=== PATIENT | male | born 1985 | race Caucasian/White ===

== ENCOUNTER 2021-07-27 18:08 | Emergency (ER) | payer MEDICAID, SELFPAY ==
[2021-07-27 18:09] VITALS: BP 133/81; PULSE 86; RESP 17; TEMP 36.3; O2SAT 100; BMI 22.0
[2021-07-27 18:54] VITALS: BP 121/78; PULSE 78; RESP 16; O2SAT 98
--- NOTE | 2021-07-27 19:39 | EX.ED.DYSGE1 ---
HPI History of Present Illness Chief Complaint: Abscess Informant: patient Narrative Narrative: Patient presents with concern for abscess on his right hand and right leg. The right hand been there for 2 or 3 days. He had some small drainage from it. It does not hurt to move his wrist or hand. He states he thinks he bumped his right leg and got a scrape. It is now red and an area around it. He has a history of MRSA. He states he used to use drugs and inject but does not do that anymore. He is on no medicines. No allergies. He has gotten Keflex and Bactrim with good improvement in the past. [facility] Medical History MRSA (methicillin resistant Staphylococcus aureus) Home Medications cephalexin 500 mg PO Q6 #40 cap 07/27/21 [Rx Last Taken Unknown] sulfamethoxazole-trimethoprim [Bactrim DS] 1 tab PO BID 10 Days #20 tab 07/27/21 [Rx Last Taken Unknown] Surgical History no surgical history Social History Smoking Status: Current every day smoker tobacco type: cigarettes ROS ROS ED Constitutional Constitutional ED: Denies chills, fever(s) or subjective ENT ENT ED: Denies rhinorrhea or sore throat Cardiovascular Cardiovascular: Denies chest pain or palpitations Respiratory/Chest Respiratory/Chest: Denies cough or dyspnea Gastrointestinal Gastrointestinal: Denies nausea or vomiting Musculoskeletal Musculoskeletal: Denies arthralgias or myalgias Integumentary Reports abscess and Abrasions Neurologic Neurologic: Denies headache(s) or weakness Endocrine Endocrinology: Denies polydipsia or polyuria Allergic/Immunologic Allergic/Immunologic ED: Denies urticaria EXAM Physical Exam Const Vital Signs: 07/27/21 18:09 07/27/21 18:54 Temperature 97.4 F L Temperature Source Temporal Pulse Rate 86 78 Respiratory Rate 17 16 Blood Pressure 133/81 H 121/78 H Blood Pressure Mean 98 92 Pulse Ox 100 98 Oxygen Delivery Method Room Air Room Air Positive well nourished and well developed General Appearance ED: well developed and NAD; Negative for cyanotic or diaphoretic HEENT Reports moist mucous membranes HEENT Narrative: No intraoral lesions petechiae Eyes General Eye ED: Negative for pale conjunctiva or scleral icterus Neck no JVD Resp normal respiratory effort Cardio regular rate Extremity Extremity Narrative: Patient has an area of erythema about 2 cm around on the right dorsal medial wrist overlying the ulnar styloid. But there is no abscess. There is an abrasion of the skin in the center. But nothing fluctuant or that could be drained. There is no pain with motion of the wrist or hand. No lymphangitic streaking. Patient also has an area on the right proximal lateral lower leg below the knee. This is about 3-1/2 cm round with erythema. In the middle there is a very thin layer of skin with a scab and what looks to be some purulent material around it. No lymphangitic streaking. No tenderness of the calf. No knee pain with motion. Neuro oriented x3 Sensorium / Orientation: alert Skin Skin Narrative: See above. MDM MDM MDM Narrative Medical decision making narrative: Right wrist is an erythematous area that is not amenable to draining. The right leg was cleansed with alcohol. I used an 18-gauge needle to unroofed this very thin layer of skin. We remove this. I did get some purulent material. I was able to express a little bit from the wound. But there is nothing that can be incised. There is no indication for further drainage. He will be placed on antibiotics. We discussed reasons to return. Discharge Plan Triage Chief Complaint: Abscess ED Provider: Wili Phelps Dx/Rx/DC Orders Clinical Impression: Abscess of hand, right, Abscess of leg, right Instructions: ED Abscess Incision And Drainage Prescriptions: New cephalexin [cephalexin] 500 MG capsule 500 mg PO Q6 Qty: 40 RF: 0 sulfamethoxazole-trimethoprim [Bactrim DS] 800-160 mg tablet 1 tab PO BID 10 Days Qty: 20 RF: 0 Primary Care Provider: Care Physician,No Primary Referrals: Jess Bradley MD [STAFF PHYSICIAN] - 3-5 Days if not improving Care Physician,No Primary [Primary Care Provider] - Disposition Disposition: Home, Self Care
[2021-07-27 19:54] VITALS: BP 134/78; PULSE 66; RESP 14; TEMP 36.9; O2SAT 98
[2021-07-27] MEDS: Smz/Tmp Ds Tablet 1 TABLET PO (19:55)
[2021-07-27] MEDS: Cephalexin 250 MG Capsule 500 MG PO (19:55)
== END 2021-07-27 19:57 | disposition home or self-care (01) ==
LOC: ED 19:46
PROVIDERS: Emergency Provider Emergency Medicine; Visit Provider Emergency Medicine
DX: L02.511 Cutaneous abscess of right hand (principal); L02.415 Cutaneous abscess of right lower limb; S60.811A Abrasion of right wrist, initial encounter; X58.XXXA Exposure to other specified factors, initial encounter; F17.210 Nicotine dependence, cigarettes, uncomplicated; Z86.14 Personal history of Methicillin resistant Staphylococcus aureus infection
CPT/HCPCS: 99283

== ENCOUNTER 2021-10-08 18:23 | Emergency (ER) | payer MEDICAID, SELFPAY ==
[2021-10-08 18:24] VITALS: BP 126/82; PULSE 94; RESP 18; TEMP 37.3; O2SAT 98; BMI 22.4
--- NOTE | 2021-10-08 19:26 | ED.VIS.DENTA ---
HPI History of Present Illness Chief Complaint: Dental Narrative Narrative: 36-year-old male with right facial swelling and right dental pain in the upper maxillary teeth and he explains it is all of the teeth in the upper right back. He states he saw his dentist last week and was put on amoxicillin. He does not know if his Augmentin or regular amoxicillin. He states he was on ibuprofen 800 mg as well. His medicines did help but now has had more facial swelling. He denies trouble swallowing or breathing. No fever or chills. No nausea or vomiting. Patient states he has a plan with his dentist for a root canal and [place]. [facility] Medical History MRSA (methicillin resistant Staphylococcus aureus) Home Medications cephalexin 500 mg PO Q6 #40 cap 07/27/21 [Rx Last Taken Unknown] sulfamethoxazole-trimethoprim [Bactrim DS] 1 tab PO BID 10 Days #20 tab 07/27/21 [Rx Last Taken Unknown] clindamycin HCl 450 mg PO TID 10 Days #90 cap 10/08/21 [Rx Last Taken Unknown] ibuprofen 800 mg PO Q8H PRN #30 tab 10/08/21 [Rx Last Taken Unknown] Allergy/AdvReac Type Severity Reaction Status Date / Time No Known Allergies Allergy Verified 10/08/21 18:26 Social History Smoking Status: Current every day smoker tobacco type: cigarettes ROS ROS ED Constitutional Constitutional ED: Denies chills, fever(s) or sweats Eyes Eyes: Denies blurry vision or change in vision ENT ENT ED: Reports other; Denies ear pain or sore throat Cardiovascular Cardiovascular: Denies chest pain, palpitations or racing heartbeat Respiratory/Chest Respiratory/Chest: Denies cough, dyspnea or sputum Gastrointestinal Gastrointestinal: Denies abdominal pain, constipation, diarrhea, nausea or vomiting Genitourinary Genitourinary ED: Denies dysuria, hematuria or urinary frequency Musculoskeletal Musculoskeletal: Denies arthralgias, myalgias or neck pain Integumentary Denies abscess, Abrasions or rash Neurologic Neurologic: Denies headache(s), paresthesias or weakness Psychiatric Psychiatric: Denies anxiety, depression, suicidal ideation or suicidal thoughts Endocrine Endocrinology: Denies polydipsia or polyuria EXAM Physical Exam Const Vital Signs: 10/08/21 18:24 Temperature 99.2 F H Temperature Source Oral Pulse Rate 94 Respiratory Rate 18 Blood Pressure 126/82 H Blood Pressure Mean 96 Pulse Ox 98 Oxygen Delivery Method Room Air Positive well nourished General Appearance ED: NAD HEENT HEENT Narrative: Dental tenderness to percussion on the maxillary teeth on the right side. This is diffuse. There is no abscess or fluctuance. Airway is patent without stridor. Tongue not swollen. No sublingual edema. No submandibular edema. Negative for trauma Teeth and Gingiva: poor dentition Neck no lymphadenopathy and supple General: Negative for submandibular swelling Resp normal respiratory effort Cardio regular rate and regular rhythm Neuro oriented x3 and CN's II-XII intact bilaterally Sensorium / Orientation: alert Psych mental status grossly normal Skin no rashes or lesions noted MDM MDM MDM Narrative Medical decision making narrative: Patient with dental pain and he is already been on a course of what I believe is amoxicillin. He is not sure if his Augmentin. He request more ibuprofen and I will start him on clindamycin. He does need a dental professional to help him and he has a dentist outpatient that he is going to see for root canal. Patient to return precautions. First doses of medications given in ER. Impression: 1. Dental abscess 2. Dental pain Discharge Plan Triage Chief Complaint: Dental ED Provider: Eder Victor Dx/Rx/DC Orders Instructions: ED Dental Cavity, ED Dental Abscess Prescriptions: New clindamycin HCl 150 mg capsule 450 mg PO TID 10 Days Qty: 90 RF: 0 ibuprofen 800 mg tablet 800 mg PO Q8H PRN (Reason: pain) Qty: 30 RF: 0 No Action cephalexin [cephalexin] 500 MG capsule 500 mg PO Q6 Qty: 40 RF: 0 sulfamethoxazole-trimethoprim [Bactrim DS] 800-160 mg tablet 1 tab PO BID 10 Days Qty: 20 RF: 0 Primary Care Provider: Venita Matias Referrals: [facility] Venita Oneal [Primary Care Provider] - Disposition Disposition: Home, Self Care
[2021-10-08] MEDS: Clindamycin HCl 150 MG Capsule 450 MG PO (19:55)
[2021-10-08] MEDS: Ibuprofen 400 MG Tablet 800 MG PO (19:56)
[2021-10-08 20:03] VITALS: BP 132/78; PULSE 80; RESP 16; O2SAT 97
== END 2021-10-08 20:23 | disposition home or self-care (01) ==
PROVIDERS: Emergency Provider Student in an Organized Health Care Education/Training Program; Visit Provider Student in an Organized Health Care Education/Training Program
DX: K04.7 Periapical abscess without sinus (principal); K08.89 Other specified disorders of teeth and supporting structures; F17.210 Nicotine dependence, cigarettes, uncomplicated; Z86.14 Personal history of Methicillin resistant Staphylococcus aureus infection
CPT/HCPCS: 99283